=== PATIENT | female | born 1995 | race Caucasian/White ===

== ENCOUNTER 2017-07-16 08:54 | Observation (INO) | payer MEDICAID ==
[2017-07-16 08:58] VITALS: BMI 33.2
[2017-07-16] MEDS ORDERED: Dexamethasone 10 MG in Sodium Chloride 0.9% 50 ML IV STA (09:30)
--- NOTE | 2017-07-16 09:40 | ED PDOC ---
HPI: General Adult Time Seen by Provider: 07/16/17 09:08 Chief Complaint (Nursing): ENT Problem Chief Complaint (Provider): Sore Throat History Per: Patient History/Exam Limitations: no limitations Onset/Duration Of Symptoms: Days (4) Additional Complaint(s): Pt. with sore throat on the left with radiation to the ear. Able to swallow with pain. No cough, congestion, runny nose. No weakness. Fever 101 at home. Took motrin. No headaches, nausea, vomit, diarrhea. No abd pain, back pain. No chest pain. Past Medical History Reviewed: Nursing Documentation, Vital Signs Vital Signs: Last Vital Signs Temp 99.2 F 07/16/17 09:07 Pulse 83 07/16/17 14:10 Resp 14 07/16/17 14:10 BP 113/67 07/16/17 14:10 Pulse Ox 100 07/16/17 14:10 - Medical History PMH: Asthma - Surgical History Surgical History: No Surg Hx - Family History Family History: States: Unknown Family Hx - Living Arrangements Living Arrangements: With Family - Social History Current smoker - smoking cessation education provided: No Alcohol: None Drugs: Denies - Allergies Allergies/Adverse Reactions: Allergies Allergy/AdvReac Type Severity Reaction Status Date / Time No Known Allergies Allergy Verified 07/16/17 09:15 Review of Systems ROS Statement: Except As Marked, All Systems Reviewed And Found Negative Constitutional: Positive for: Fever ENT: Positive for: Ear Pain, Throat Pain Physical Exam - Reviewed Nursing Documentation Reviewed: Yes Vital Signs Reviewed: Yes - Physical Exam Appears: Positive for: Non-toxic, No Acute Distress Head Exam: Positive for: ATRAUMATIC, NORMAL INSPECTION, NORMOCEPHALIC Skin: Positive for: Normal Color, Warm, DRY Eye Exam: Positive for: EOMI, Normal appearance, PERRL ENT: Positive for: Pharyngeal Erythema (mild L), Tonsillar Exudate, Tonsillar Swelling (L), Other (no uvular deviation). Negative for: Nasal Congestion Neck: Positive for: Normal, Painless ROM, Supple Cardiovascular/Chest: Positive for: Regular Rate, Rhythm Respiratory: Positive for: CNT, Normal Breath Sounds Gastrointestinal/Abdominal: Positive for: Normal Exam, Bowel Sounds, Soft. Negative for: Tenderness Back: Positive for: Normal Inspection. Negative for: L CVA Tenderness, R CVA Tenderness Extremity: Positive for: Normal ROM. Negative for: Tenderness, Pedal Edema Neurologic/Psych: Positive for: Alert, Oriented - Laboratory Results Result Diagrams: 07/16/17 09:55 07/16/17 09:55 Interpretation Of Abn Labs: no acute - ECG ECG: Positive for: Interpreted By Me, Viewed By Me ECG Rhythm: Positive for: Normal QRS, Normal ST Segment, Sinus Rhythm O2 Sat by Pulse Oximetry: 100 Pulse Ox Interpretation: Normal - Radiology X-Ray: Read By Radiologist X-Ray Interpretation: No Acute Disease - CT Scan/US ct Other Rad Studies (CT/US): Read By Radiologist Other Rad Interpretation: The 2 small hypodensities measure 1.2 and 0.7 cm for possible abscess - Progress ED Course And Treament: 1652: Stable. AAOx3. Spoke with Dr. Yarbrough. Will admit. Spoke with Dr. Liz. Will consult. Disposition - Clinical Impression Clinical Impression: Tonsillar abscess - Patient ED Disposition Is Patient to be Admitted: Yes Counseled Patient/Family Regarding: Studies Performed, Diagnosis - Disposition Disposition Time: 16:54 Condition: FAIR - Pt Status Changed To: Hospital Disposition Of: Observation - POA Present On Arrival: None
[2017-07-16 10:15] LABS: VENOUS BLOOD GAS BASE EXCESS -0.6 mmol/L (0.0-2.0); VENOUS BLOOD GAS PCO2 43 mmHg (40-60); VENOUS BLOOD PH 7.37 (7.32-7.43)
[2017-07-16] MEDS: Sodium Chloride 0.9% 1,000 ML IV SCH (10:15)
[2017-07-16 10:16] LABS: BASO % 0.2 % (0.0-2.0); EOS # 0.1 K/uL (0.0-0.7); EOS % 1.4 % (0.0-4.0); HEMATOCRIT 35.7 % (34.0-47.0); LYMPH # 0.8 K/uL (1.0-4.3); LYMPH % 12.3 % (20.0-40.0); MEAN CELL VOLUME 81.2 fl (81.0-99.0); MEAN CORPUSCULAR HEMOGLOBIN 26.3 pg (27.0-31.0); MEAN CORPUSCULAR HGB CONC 32.4 g/dL (33.0-37.0); MEAN PLATELET VOLUME 8.5 fl (7.2-11.7); MONO # 0.5 K/uL (0.0-0.8); MONO % 7.9 % (0.0-10.0); NEUT # 4.8 K/uL (1.8-7.0); NEUT % 78.2 % (50.0-75.0); NRBC % 0.1 % (0.0-0.0); RED CELL DISTRIBUTION WIDTH 12.9 % (11.5-14.5); WHITE BLOOD COUNT 6.1 K/uL (4.8-10.8)
[2017-07-16 10:27] LABS: ALB/GLOB RATIO 1.2 (1.0-2.1); ALKALINE PHOSPHATASE 61 U/L (38-126); ALT/SGPT 43 U/L (9-52); AST/SGOT 25 U/L (14-36); BILIRUBIN,TOTAL 0.3 mg/dl (0.2-1.3); BLOOD UREA NITROGEN 12 mg/dl (7-17); CALCIUM 8.7 mg/dL (8.4-10.2); CARBON DIOXIDE 23 mmol/L (22-30); CHLORIDE 106 mmol/L (98-107); GFR AFRICAN-AMERICAN > 60; GLUCOSE,RANDOM 87 mg/dL (65-105); MAGNESIUM 1.9 MG/DL (1.6-2.3); PHOSPHOROUS 3.6 mg/dl (2.5-4.5); POTASSIUM 3.9 MMOL/L (3.6-5.0); SODIUM 138 mmol/l (132-148); TOTAL PROTEIN 7.2 G/DL (6.3-8.2)
[2017-07-16 11:07] LABS: PARTIAL THROMBOPLASTIN TIME 37.4 Seconds (25.6-37.1)
[2017-07-16 11:14] LABS: RBC URINE 3 /hpf (0-3); URINE BILIRUBIN NEGATIVE (NEGATIVE); URINE BLOOD NEGATIVE (NEGATIVE); URINE GLUCOSE (UA) NEG (Normal); URINE KETONE TRACE mg/dL (NEGATIVE); URINE LEUKOCYTE ESTERASE NEG Leu/uL (Negative); URINE PROTEIN 30 mg/dL (NEGATIVE); WBC URINE 2 /hpf (0-5)
[2017-07-16 11:19] LABS: URINE COLOR DARK YELLOW (YELLOW)
--- NOTE | 2017-07-16 11:31 | RAD ---
HISTORY: Sepsis Patient COMPARISON: No prior. FINDINGS: LUNGS: No active pulmonary disease. PLEURA: No significant pleural effusion identified, no pneumothorax apparent. CARDIOVASCULAR: Normal. OSSEOUS STRUCTURES: No significant abnormalities. VISUALIZED UPPER ABDOMEN: Normal. OTHER FINDINGS: None. IMPRESSION: No active disease.
[2017-07-16] MEDS ORDERED: Iohexol 300 100 ML IJ ONE (12:38)
[2017-07-16] MEDS ORDERED: Sodium Chloride 0.9% 50 ML IV ONE (12:38)
[2017-07-16] MEDS ORDERED: Morphine 4 MG/ML VIAL ONE (14:10)
[2017-07-16] MEDS ORDERED: Morphine 4 MG/ML VIAL IV ONE (14:30)
[2017-07-16] MEDS ORDERED: Clindamycin 600mg/50ml NS 600 MG/50 ML BAG IVPB STA (15:31)
--- NOTE | 2017-07-16 16:35 | CT ---
PROCEDURE: CT NECK WITH CONTRAST HISTORY: eval for peritonsillar abscess L COMPARISON: None TECHNIQUE: CT of the neck with intravenous contrast. Coronal and sagittal reformats generated. Intravenous contrast dose: 90 cc Omnipaque 300 Radiation dose: DLP 485.20 mGy-cm This CT exam was performed using one or more of the following dose reduction techniques: Automated exposure control, adjustment of the mA and/or kV according to patient size, and/or use of iterative reconstruction technique. FINDINGS: NASOPHARYNX: Unremarkable. SUPRAHYOID NECK: Inflammatory changes, edema and contrast-enhanced characteristics indicative of left palatini tonsillitis. Small necrotic focus 7 mm indicative of peritonsillar abscess. Unremarkable epiglottis, valleculae and piriform sinuses. INFRAHYOID NECK: Unremarkable larynx, hypopharynx, and supraglottic space. Vocal cords intact. MASS: None. GLANDS: Parotid and submandibular glands unremarkable. Normal size thyroid gland, without nodule. LYMPH NODES: Bilateral submandibular and left level 2 lymph nodes identified and enlarged consistent with inflammatory, infectious etiology. CERVICAL SPINE: No fracture or focal lesion. VASCULAR STRUCTURES: Unremarkable. OTHER FINDINGS: None. IMPRESSION: Left palatine tonsil inflammatory changes with associated small peritonsillar abscess ease. No prevertebral abnormalities. No compromise of the oropharyngeal airway. Concordant results (preliminary interpretation) provided by [employer]. Procedure Completed: 12:56 Preliminary ([facility]) Report: Dictated and Authenticated: 15:09 Final Interpretation: 16:33
[2017-07-16] MEDS ORDERED: Lidocaine 2% w Epi 1:100,000 Inj IJ ONE (18:48)
[2017-07-16] MEDS ORDERED: Sodium Chloride 0.9% 1,000 ML IV SCH (19:00)
[2017-07-17] MEDS: Clindamycin 600mg/50ml NS 600 MG/50 ML BAG IVPB SCH ×2 (00:28→08:55)
[2017-07-17] MEDS: Acetaminophen-Codeine 300/30 mg Tab PO PRN ×3 (04:20→15:31)
[2017-07-17 08:11] VITALS: RESP 18
[2017-07-17] MEDS: Sodium Chloride 0.9% 1,000 ML IV SCH (08:56)
[2017-07-17 09:21] LABS: THYROID STIMULATING HORMONE 0.88 mIU/ML (0.46-4.68)
[2017-07-17 16:36] VITALS: BP 107/74; PULSE 89; TEMP 99; O2SAT 98
--- NOTE | 2017-07-17 23:31 | OP ---
PROCEDURE DATE: 07/17/2017 PREOPERATIVE DIAGNOSIS: Left peritonsillar abscess. POSTOPERATIVE DIAGNOSIS: Left peritonsillar abscess. PROCEDURE: Incision and drainage of left peritonsillar abscess. SIGNIFICANT FINDINGS: Left peritonsillar abscess. DESCRIPTION OF PROCEDURE: The patient was brought into the room, placed in a seated position. The left peritonsillar area was injected with lidocaine with epinephrine. An incision was made using an #11 blade in the left peritonsillar area clamp dissection was done. A small amount of pus was noted coming out. Loculations were broken with a clamp. Bleeding was controlled with time. The patient tolerated the procedure well. Neo Liz MD MTDJoseph
--- NOTE | 2017-07-18 08:26 | ED ---
CHIEF COMPLAINT: Sore throat with bloody, white, purulent mucus. HISTORY OF PRESENT ILLNESS: This is a 21-year-old female without significant past medical history who was having sore throat and ear pain for last 2 days for which the patient did not seek any medical help, but yesterday, the patient's condition got much worse and the patient started having cough with mucus, stained with blood and pus. So, the patient came to the emergency room; however, after workup, the patient was found to have peritonsillar abscess and was admitted for further management. REVIEW OF SYSTEMS: Positive for generalized malaise, weakness, fatigue, tired, fever, sore throat, and bloody purulent mucus. Review of systems otherwise is negative for dizziness, syncope, loss of consciousness, chest pain, shortness of breath, nausea, vomiting, diarrhea, constipation, or any new joint or extremity pain. Review of systems of all other organ system is unremarkable. PAST MEDICAL HISTORY: Unremarkable. PAST SURGICAL HISTORY: Unremarkable. PERSONAL HISTORY: The patient is a nonsmoker, nondrinker, no substance abuse. MEDICATIONS: The patient is not on chronic medications at home. ALLERGIES: THE PATIENT IS NOT ALLERGIC TO ANY MEDICATIONS. FAMILY HISTORY: Noncontributory. PHYSICAL EXAMINATION: GENERAL: Well-built, well-nourished, slightly overweight 21-year-old female, in no acute distress. VITAL SIGNS: Temperature 98.3, pulse 79, respirations 18, blood pressure 100/60, and saturation 93%. HEENT: The patient has marked pharyngeal erythema with left tonsillar swelling and abscess with purulent discharge. No JVD. No thyromegaly. No lymphadenopathy. No nystagmus. Normocephalic and atraumatic skull. HEART: S1 and S2, normal and regular. No significant murmur, gallop, or rub is heard. LUNGS: Exam shows good bilateral air exchange. No rales or rhonchi. ABDOMEN: Soft and nontender. No organomegaly. No fluid. Bowel sounds are present and normal. EXTREMITIES: No edema. No calf swelling. No tenderness. No acute ischemia. CENTRAL NERVOUS SYSTEM: Essentially unchanged and there is no sign of any acute gross focal motor or sensory neurological deficit. LABORATORY DATA: WBC 6.1, hemoglobin 11.6, hematocrit 35.7, platelet 195. PT 12.7, PTT 37.4. ABG shows pH 7.37, pO2 of 35, pCO2 of 43; this is obviously a venous gas. SMA-7 shows sodium 133, potassium 3.9, chloride 107, bicarb 23, BUN 12, creatinine 0.7. SMA-12 is unremarkable. Urinalysis is negative. Chest x-ray is clear. Soft tissue neck shows peritonsillar abscess on left side. ADMITTING IMPRESSION: Peritonsillar abscess, tonsillitis, upper respiratory tract infection, obesity with body mass index of 33. PLAN: As ordered. Case and plan discussed with the patient. Tyrese Yarbrough MD
== END 2017-07-17 16:40 | disposition left against medical advice (07) ==
LOC: H.ER 08:54 → H.ERHOLD 16:51 → H.MEDSURG1 18:41
PROVIDERS: ADMIT Internal Medicine; ATTEND Internal Medicine
DX: J36 Peritonsillar abscess (principal); E66.3 Overweight; J45.909 Unspecified asthma, uncomplicated; Z68.33 Body mass index [BMI] 33.0-33.9, adult
CPT/HCPCS: 36415; 42700; 70491; 71010; 80053; 80061; 81003; 81025; 82607; 82803; 83735; 84100; 84443; 85025; 85610; 85730; 87040; 87070; 87086; 87430; 96374; 99282; G0378; J1100; J1885; J2270; J7040; Q9967